=== PATIENT | male | born 1950 | race Caucasian/White ===

== ENCOUNTER 2017-12-20 10:02 | Emergency (ER) | payer MEDICARE, OTHER ==
[2017-12-20] MEDS ORDERED: Sodium Chloride 0.9% 2.5 ML Syringe FLUSH PRN ×2 (10:25→11:57)
[2017-12-20] MEDS ORDERED: Sodium Chloride 0.9% 10 ML Syringe FLUSH PRN ×2 (10:25→11:57)
--- NOTE | 2017-12-20 10:33 | EDM.PDOC ---
ED HPI GENERAL MEDICAL PROBLEM - General Chief Complaint: Gastrointestinal Problem Stated Complaint: ABD AND BACK PAIN Time Seen by Provider: 12/20/17 10:29 Source of Information: Reports: Patient, Family History Limitations: Reports: No Limitations - History of Present Illness INITIAL COMMENTS - FREE TEXT/NARRATIVE: HISTORY AND PHYSICAL: []67-year-old male presenting with abdominal pain History of Present Illness: []Patient relates having awakened this morning at 5 AM with some neck and back pain now has gone to his abdomen Not relate any neck pain at this time Patient is on metformin for type II diabetic Patient doctors with [facility] Dr. Gomez. is at bedside Review of Systems: As per history of present illness and below otherwise all systems reviewed and negative. Past medical history: As per history of present illness and as reviewed below otherwise noncontributory. Surgical history: As per history of present illness and as reviewed below otherwise noncontributory. Social history: No reported history of drug or alcohol abuse. Family history: As per history of present illness and as reviewed below otherwise noncontributory. Physical exam: Alert and oriented gentleman who answers questions in full sentences without any shortness of breath. Tobacco odor present. HEENT: Atraumatic, normocehpalic, pupils reactive, negative for conjunctival pallor or scleral icterus, mucous membranes moist, throat clear, neck supple, nontender, trachea midline. Tympanic membranes dull no erythema and alberts were visualized. Lungs: Clear to auscultation, breath sounds equal bilaterally, chest non tender. Heart: S1S2, regular, negative for clicks, rubs, or JVD. Abdomen: Soft, nondistended, nontender. Negative for masses or hepatossplenmegaly. Negative for costovertebral tenderness. Pelvis: Stable nontender. Genitourinary: Deferred. Rectal: Deferred Extremities: Atraumatic, negative for cords or calf pain. Neurovascular unremarkable. Neuro: Awake, alert, oriented. Cranial nerves II through XII unremarkable. Cerebellum unremarkable. Motor and sensory unremarkable throughout. Exam nonfocal. Discussed the results with the patient and negative aspects. All questions were answered patient verbalized understanding Diagnostics: [EKG CBC CMP amylase and lipase chest x-ray] Therapeutics: [] Impression: []Abdominal Pain Plan: []Discharged to home [id number] Tylenol for discomfort Worsening of symptoms he'll need to return over the weekend for reevaluation With your primary care provider on Friday Definitive disposition and diagnosis as appropriate pending reevaluation and review of above. Onset: Today, Sudden Duration: Hour(s): Location: Reports: Abdomen, Back Quality: Reports: Ache Severity: Moderate Improves with: Reports: None Worsens with: Reports: None Abdominal Pain Score (Numeric/FACES): 7 - Related Data Allergies Allergy/AdvReac Type Severity Reaction Status Date / Time No Known Allergies Allergy Verified 12/20/17 10:14 Home Meds: Home Meds Diltiazem [Dilacor XR] 120 mg PO DAILY 12/20/17 [History] metFORMIN [Glucophage XR] 1,000 mg PO DAILY 12/20/17 [History] Past Medical History Cardiovascular History: Reports: Hypertension Endocrine/Metabolic History: Reports: Diabetes, Type II - Past Surgical History Other GI Surgeries/Procedures: Had a surgery on bowels, doesn't recall the name. Social & Family History - Family History Family Medical History: Noncontributory - Tobacco Use Smoking Status *Q: Current Every Day Smoker Years of Tobacco use: 30 Packs/Tins Daily: 1 - Caffeine Use Caffeine Use: Reports: Coffee - Recreational Drug Use Recreational Drug Use: No ED ROS GENERAL - Review of Systems Review Of Systems: ROS reveals no pertinent complaints other than HPI. ED EXAM, GI/ABD - Physical Exam Exam: See Below (See dictation) EKG INTERPRETATION EKG Date: 12/20/17 Time: 10:37 Rhythm: NSR Rate (Beats/Min): 57 Comparison: NA - No Prior EKG Course - Vital Signs Last Recorded V/S: Last Vital Signs Temp 35.7 C 12/20/17 10:12 Pulse 53 L 12/20/17 12:10 Resp 16 12/20/17 12:10 BP 179/80 H 12/20/17 12:10 Pulse Ox 94 L 12/20/17 12:10 - Orders/Labs/Meds Orders: Active Orders 24 hr Category Date Time Status EKG Documentation Completion [RC] STAT Care 12/20/17 10:25 Active Abdomen Pelvis w Cont [CT] Stat Exams 12/20/17 11:58 Taken Chest 2V [CR] Stat Exams 12/20/17 10:26 Taken CULTURE URINE [RM] Stat Lab 12/20/17 11:01 Received Sodium Chloride 0.9% [Saline Flush] Med 12/20/17 10:25 Active 10 ml FLUSH ASDIRECTED PRN Sodium Chloride 0.9% [Saline Flush] Med 12/20/17 11:57 Active 10 ml FLUSH ASDIRECTED PRN Sodium Chloride 0.9% [Saline Flush] Med 12/20/17 10:25 Active 2.5 ml FLUSH ASDIRECTED PRN Sodium Chloride 0.9% [Saline Flush] [facility] 12/20/17 11:57 Active 2.5 ml FLUSH ASDIRECTED PRN Saline Lock Insert [OM.PC] Stat Ot 12/20/17 10:25 Ordered Saline Lock Insert [OM.PC] Stat [facility] 12/20/17 11:57 Ordered Medication Orders Sodium Chloride (Saline Flush) 10 ml FLUSH ASDIRECTED PRN PRN Reason: Keep Vein Open Sodium Chloride (Saline Flush) 2.5 ml FLUSH ASDIRECTED PRN PRN Reason: Keep Vein Open Sodium Chloride (Saline Flush) 10 ml FLUSH ASDIRECTED PRN PRN Reason: Keep Vein Open Sodium Chloride (Saline Flush) 2.5 ml FLUSH ASDIRECTED PRN PRN Reason: Keep Vein Open Labs: Laboratory Tests 12/20/17 12/20/17 12/20/17 Range/Units 10:30 10:30 11:01 WBC 8.91 (4.0-11.0) K/uL RBC 4.85 (4.50-5.90) M/uL Hgb 16.1 (13.0-17.0) g/dL Hct 46.6 (38.0-50.0) % MCV 96.1 (80.0-98.0) fL MCH 33.2 H (27.0-32.0) pg MCHC 34.5 (31.0-37.0) g/dL RDW Std Deviation 52.1 (28.0-62.0) fl RDW Coeff of Ebony 15 (11.0-15.0) % Plt Count 156 (150-400) K/uL MPV 9.60 (7.40-12.00) fL Neut % (Auto) 83.3 H (48.0-80.0) % Lymph % (Auto) 9.9 L (16.0-40.0) % Mcmullen % (Auto) 6.1 (0.0-15.0) % Eos % (Auto) 0.6 (0.0-7.0) % Baso % (Auto) 0.1 (0.0-1.5) % Neut # (Auto) 7.4 H (1.4-5.7) K/uL Lymph # (Auto) 0.9 (0.6-2.4) K/uL Mcmullen # (Auto) 0.5 (0.0-0.8) K/uL Eos # (Auto) 0.1 (0.0-0.7) K/uL Baso # (Auto) 0.0 (0.0-0.1) K/uL Nucleated RBC % 0.0 /100WBC Nucleated RBCs # 0 K/uL Sodium 137 (136-148) mmol/L Potassium 3.7 (3.5-5.1) mmol/L Chloride 101 (98-107) mmol/L Carbon Dioxide 26.5 (21.0-32.0) mmol/L BUN 18 (7.0-18.0) mg/dL Creatinine 1.1 (0.8-1.3) mg/dL Est Cr Clr Drug Dosing 63.38 mL/min Estimated GFR (MDRD) > 60.0 ml/min Glucose 172 H (74-106) mg/dL Calcium 8.7 (8.5-10.1) mg/dL Total Bilirubin 0.5 (0.2-1.0) mg/dL AST 30 (15-37) IU/L ALT 35 (14-63) IU/L Alkaline Phosphatase 94 (46-116) U/L Troponin I < 0.050 (0.000-0.056) ng/mL Total Protein 7.2 (6.4-8.2) g/dL Albumin 3.0 L (3.4-5.0) g/dL Globulin 4.2 H (2.0-3.5) g/dL Albumin/Globulin Ratio 0.7 L (1.3-2.8) Amylase 54 (25-115) U/L Lipase 68 L (73-393) U/L Urine Color YELLOW Urine Appearance CLEAR Urine pH 7.0 (5.0-8.0) Ur Specific [place] 1.025 (1.001-1.035) Urine Protein 100 (NEGATIVE) mg/dL Urine Glucose (UA) NEGATIVE (NEGATIVE) mg/dL Urine Ketones 15 H (NEGATIVE) mg/dL Urine Occult Blood SMALL H (NEGATIVE) Urine Nitrite NEGATIVE (NEGATIVE) Urine Bilirubin NEGATIVE (NEGATIVE) Urine Urobilinogen 0.2 (<2.0) EU/dL Ur Leukocyte Esterase NEGATIVE (NEGATIVE) Urine RBC 2-3 (0-2/HPF) Urine WBC 0-1 (0-5/HPF) Ur Epithelial Cells RARE (NONE-FEW) Urine Bacteria RARE (NEGATIVE) Meds: Medications Generic Name Dose Route Start Last Admin Trade Name Freq PRN Reason Stop Dose Admin Sodium Chloride 10 ml 12/20/17 10:25 Saline Flush FLUSH ASDIRECTED PRN Keep Vein Open Sodium Chloride 2.5 ml 12/20/17 10:25 Saline Flush FLUSH ASDIRECTED PRN Keep Vein Open Sodium Chloride 10 ml 12/20/17 11:57 Saline Flush FLUSH ASDIRECTED PRN Keep Vein Open Sodium Chloride 2.5 ml 12/20/17 11:57 Saline Flush FLUSH ASDIRECTED PRN Keep Vein Open Discontinued Medications Generic Name Dose Route Start Last Admin Trade Name Freq PRN Reason Stop Dose Admin Sodium Chloride 1,000 mls @ 999 mls/hr 12/20/17 11:58 12/20/17 12:07 Normal Saline IV 12/20/17 12:58 999 mls/hr STAT ONE Administration Morphine Sulfate 2 mg 12/20/17 11:59 12/20/17 12:07 Morphine IVPUSH 12/20/17 12:00 2 mg ONETIME ONE Administration Ondansetron HCl 4 mg 12/20/17 11:59 12/20/17 12:07 Zofran IVPUSH 12/20/17 12:00 4 mg ONETIME ONE Administration Departure - Departure Time of Disposition: 13:25 Disposition: Home, Self-Care 01 Condition: Good Clinical Impression: Abdominal pain - Discharge Information Instructions: Dehydration, Adult, [id number], Viral Gastroenteritis, Adult, [id number], Abdominal Pain, Adult, [id number] Referrals: Orquidea Sanchez DO [Primary Care Provider] - Forms: ED Department Discharge Additional Instructions: The following information is given to patients seen in the emergency department who are being discharged to home. This information is to outline your options for follow-up care. We provide all patients seen in our emergency department with a follow-up referral. The need for follow-up, as well as the timing and circumstances, are variable depending upon the specifics of your emergency department visit. If you don't have a primary care physician on staff, we will provide you with a referral. We always advise you to contact your personal physician following an emergency department visit to inform them of the circumstance of the visit and for follow-up with them and/or the need for any referrals to a consulting specialist. The emergency department will also refer you to a specialist when appropriate. This referral assures that you have the opportunity for followup care with a specialist. All of these measure are taken in an effort to provide you with optimal care, which includes your followup. Under all circumstances we always encourage you to contact your private physician who remains a resource for coordinating your care. When calling for followup care, please make the office aware that this follow-up is from your recent emergency room visit. If for any reason you are refused follow-up, please contact the [facility] emergency department at and asked to speak to the emergency department charge nurse. No gross abnormalities were noted on your exam today Your pain worsens return for reevaluation Follow-up in the clinic on Friday, December 22, 2017 - My Orders Last 24 Hours: My Active Orders 12/20/17 10:25 EKG Documentation Completion [RC] STAT Sodium Chloride 0.9% [Saline Flush] 10 ml FLUSH ASDIRECTED PRN Sodium Chloride 0.9% [Saline Flush] 2.5 ml FLUSH ASDIRECTED PRN Saline Lock Insert [OM.PC] Stat 12/20/17 10:26 Chest 2V [CR] Stat 12/20/17 11:01 CULTURE URINE [RM] Stat 12/20/17 11:57 Sodium Chloride 0.9% [Saline Flush] 10 ml FLUSH ASDIRECTED PRN Sodium Chloride 0.9% [Saline Flush] 2.5 ml FLUSH ASDIRECTED PRN Saline Lock Insert [OM.PC] Stat 12/20/17 11:58 Abdomen Pelvis w Cont [CT] Stat - Assessment/Plan Last 24 Hours: My Active Orders 12/20/17 10:25 EKG Documentation Completion [RC] STAT Sodium Chloride 0.9% [Saline Flush] 10 ml FLUSH ASDIRECTED PRN Sodium Chloride 0.9% [Saline Flush] 2.5 ml FLUSH ASDIRECTED PRN Saline Lock Insert [OM.PC] Stat 12/20/17 10:26 Chest 2V [CR] Stat 12/20/17 11:01 CULTURE URINE [RM] Stat 12/20/17 11:57 Sodium Chloride 0.9% [Saline Flush] 10 ml FLUSH ASDIRECTED PRN Sodium Chloride 0.9% [Saline Flush] 2.5 ml FLUSH ASDIRECTED PRN Saline Lock Insert [OM.PC] Stat 12/20/17 11:58 Abdomen Pelvis w Cont [CT] Stat
[2017-12-20 11:13] LABS: CHLORIDE,CL 101 mmol/L (98-107); SODIUM,NA 137 mmol/L (136-148)
[2017-12-20] MEDS ORDERED: Sodium Chloride 0.9% 1,000 ML IV ONE (11:58)
[2017-12-20] MEDS ORDERED: Morphine 4 MG/ML Syringe IVPUSH ONE (11:59)
[2017-12-20] MEDS ORDERED: Ondansetron 4 MG/2 ML SDV IVPUSH ONE (11:59)
[2017-12-20] MEDS ORDERED: Iopamidol 755 MG/ML 200 ML Multipack Bottle IVPUSH ONE (15:37)
--- NOTE | 2017-12-22 14:34 | CR ---
EXAM DATE: 12/20/17 PATIENT'S AGE: 67 Patient: KAMILLE ALEXANDER Facility: [place], [place] Site . Site : 1950 Study: XRay Chest [id number]/[id number] 10:58:50 AM Ordering Physician: Doctor Trinidad Final Report: INDICATION: Back pain with shortness of breath and nausea. TECHNIQUE: Two views. COMPARISON: None. IMPRESSION: Mild prominence cardiac silhouette likely mild cardiomegaly. Pulmonary vascular caliber is upper normal. Hazy and reticular attenuation in the mid to lower lungs likely some mild pulmonary edema and perhaps some atelectasis. No definite pneumonia. No pneumothorax or effusion. No bone finding of significance. Dictated by Frederick Calvillo MD @ Dec 20 2017 11:07AM (Electronic Signature) Report Signed by Proxy. TAYLOR
--- NOTE | 2017-12-22 14:41 | CT ---
EXAM DATE: 12/20/17 PATIENT'S AGE: 67 Patient: KAMILLE ALEXANDER Facility: [place], [place] Site . Site : 1950 Study: CT Abdomen/Pelvis [id number]/24/2018 12:35:34 PM Ordering Physician: Doctor Trinidad Final Report: INDICATION: Abdominal pain. TECHNIQUE: 100 cc nonionic [id number] administered without complication. COMPARISON: None. FINDINGS: The included lung bases are clear. Coronary artery calcification. Two or 3 periesophageal lymph nodes along the lower esophagus are of uncertain and probably doubtful significance. The liver is negative for masses or biliary dilatation. There is no splenomegaly. Normal pancreas, adrenal glands, and kidneys. Cholelithiasis. No biliary ductal dilatation. No CT evidence for acute cholecystitis. The stomach and duodenum although incompletely distended are within normal limits. Diffuse scattered colonic diverticulosis throughout the entire colon without evidence for active diverticulitis. A normal-appearing appendix is present on image 112 series 201 and image 51 series 203. No ascites or lymphadenopathy. Dense vascular calcification within a minimally ectatic abdominal aorta and common iliac arteries. Urinary bladder is normal. Mild prostatic enlargement. Normal seminal vesicles. The included skeleton demonstrates an old incompletely healed fracture of an anterior lateral right mid rib image 10 series 201. Scattered degenerative disc disease of the lumbar spine particularly from L3-L5. IMPRESSION: 1. Scattered colonic diverticulosis throughout the entire colon. No evidence for diverticulitis. 2. Normal appendix. 3. Cholelithiasis without CT evidence for cholecystitis. 4. Arterial vascular calcification within the chest abdomen and pelvis. Prostatic enlargement. Old right rib fracture. Please note that all CT scans at this facility use dose modulation, iterative reconstruction, and/or weight-based dosing when appropriate to reduce radiation dose to as low as reasonably achievable. Dictated by Black Light MD @ Dec 20 2017 12:44PM (Electronic Signature) Report Signed by Proxy. TAYLOR
== END 2017-12-20 13:40 | disposition home or self-care (01) ==
LOC: MW.ED 10:02
DX: R10.9 Unspecified abdominal pain (principal); R07.9 Chest pain, unspecified; F17.210 Nicotine dependence, cigarettes, uncomplicated; E11.9 Type 2 diabetes mellitus without complications; I10 Essential (primary) hypertension; Z79.84 Long term (current) use of oral hypoglycemic drugs; Z79.899 Other long term (current) drug therapy
CPT/HCPCS: 36415; 71046; 74177; 80053; 81001; 82150; 83690; 84484; 85025; 87086; 93005; 96361; 96374; 96375; 99284; J2270; J2405; J7040; Q9967; 99283